=== PATIENT | female | born 2000 ===

== ENCOUNTER 2025-08-14 06:29 | Outpatient (REF) | payer OTHER, SELFPAY ==
--- NOTE | ~2025-08-14 | US_ITS ---
EXAMINATION: US RETROPERITONEAL COMPLETE (RENAL) CLINICAL INFORMATION: Hematuria.. COMPARISON: None available. TECHNIQUE: Real-time imaging of the kidneys and bladder. FINDINGS: RIGHT KIDNEY: 11 x 5 x 5 cm (SAG x AP x TRV). Normal echotexture. Renal cortical thickness is normal. No hydronephrosis. No gross solid or cystic lesion. LEFT KIDNEY: 11 x 5 x 5 cm (SAG x AP x TRV). Normal echotexture. Renal cortical thickness is normal. No hydronephrosis. No gross solid or cystic lesion. BLADDER: Fluid-filled nondistended. Bilateral ureteral jets are demonstrated. Prevoid bladder volume is 510 mL. Postvoid bladder volume is 55 mL. US/US retroperitoneal comp IMPRESSION: 55 cc retained urine in a post void image. No hydronephrosis. No gross nephrolithiasis.. Electronically signed by: Damian Henning MD 08/14/2025 12:38 PM EDT
== END 2025-08-14 06:30 | disposition home or self-care (01) ==
LOC: HO.UMASIMG 06:29
PROVIDERS: Visit Provider Registered Nurse
DX: R31.0 Gross hematuria (principal); N76.0 Acute vaginitis
CPT/HCPCS: 76770

== ENCOUNTER → 2025-08-14 11:42 | Outpatient (BNV) | payer OTHER, SELFPAY | PROVIDERS: Visit Provider Radiology Diagnostic Radiology | DX: R31.9 Hematuria, unspecified (principal) | CPT/HCPCS: 76770 ==